=== PATIENT | female | born 1975 | race Caucasian/White ===

== ENCOUNTER → 2020-05-26 | Outpatient (CLI) | payer OTHER | LOC: LAB 12:37 | PROVIDERS: ATTEND Anesthesiology | DX: Z01.812 Encounter for preprocedural laboratory examination (principal); Z20.828 Contact with and (suspected) exposure to other viral communicable diseases ==

== ENCOUNTER 2020-10-18 08:28 | Emergency (ER) | payer OTHER ==
[~2020-10-18] VITALS: Ht 162.6 cm; Wt 52.2 kg
[2020-10-18] MEDS ORDERED: HYDROCODON-ACE1 EAC7 PO (09:34)
[2020-10-18 09:45] VITALS: BP 115/78
== END 2020-10-18 09:55 | disposition home or self-care (01) ==
LOC: ER 08:28
DX: S92.322A Displaced fracture of second metatarsal bone, left foot, initial encounter for closed fracture (principal); S92.332A Displaced fracture of third metatarsal bone, left foot, initial encounter for closed fracture; S92.342A Displaced fracture of fourth metatarsal bone, left foot, initial encounter for closed fracture; X50.1XXA Overexertion from prolonged static or awkward postures, initial encounter; Y93.89 Activity, other specified; Y92.89 Other specified places as the place of occurrence of the external cause; Y99.8 Other external cause status